=== PATIENT | female | born 1945 | race Caucasian/White ===

== ENCOUNTER → 2017-03-20 | Outpatient (CLI) | payer MEDICARE, OTHER ==
[~2017-03-20] MED LIST: AMLO5TAB PO; ASPIR-LOW81 MG PO; ASPIRIN 325MG325 MG PO; CARVEDILOL 1212.5 MG PO; CLOPIDOGREL75 M1 PO; DICLOFENAC SODI75 M2 PO; DICLOFENAC SODI75 M3 PO; GOOD NEIGHBOR P20 M1 PO; HYDROCHLOROTH12.5 M2 PO; KEFLEX 500MG.500 MG PO; LIPITOR20 MG PO; LOSARTAN POTAS100 MG PO; LOSARTAN POTASS1 TA1 PO; METHOCARBAMOL750 M1 PO; OCUVITE EYE +1 EACH PO; OMEPRAZOLE20 MG PO; PREDNISONE 20MG20 MG PO; ZANTAC 150150 MG PO
--- NOTE | 2017-03-25 11:19 | RADIOLOGY REPORT PS360 ---
DIG MAMM-SCREEN PAT W/CAD CAD Screening ORDERING PHYSICIAN : Tolu Banerjee MD PATIENT AGE: 71 years GENDER: Female COMPARISON: Previous mammograms: February 2015 and 2015 and 2013 INDICATION: Routine screening no hormones. No new complaints. Noncontributory family history TECHNIQUE: Standard CC and MLO images were obtained. R2 CAD reviewed. FINDINGS: Low-density breast bilaterally with no dominant mass or suspicious calcifications. There are fairly extensive vascular calcifications throughout both breast which likely correlate with underlying coronary artery disease or diabetes. No new findings of significant concern compared to previous studies IMPRESSION: Stable mammogram with no new areas of significant concern.. Lower density breast. Prominent vascular calcifications both breast incidentally noted BI-RADS CATEGORY: 1_Negative RECOMMENDED FOLLOWUP: 12M 12 MONTH FOLLOW-UP (A letter has been sent to the patient regarding results of the study.)
== END ==
LOC: RAD 08:30
DX: Z12.31 Encounter for screening mammogram for malignant neoplasm of breast (principal)
CPT/HCPCS: G0202

== ENCOUNTER → 2017-05-04 | Outpatient (CLI) | payer MEDICARE, OTHER ==
[2017-05-04 10:21] LABS: HEMOGLOBIN 10.9 g/dL (12.2-16.2); LYMPH # 2.6 K/mm3 (0.7-4.5); LYMPH % 40.9 % (10-50.0)
[2017-05-04 12:12] LABS: BUN 15 mg/dL (7-18)
[2017-05-04 12:13] LABS: GFR (ESTIMATED) 61 ML/MIN (59-)
== END ==
LOC: LAB 09:49
PROVIDERS: Nurse Practitioner Family
DX: E78.5 Hyperlipidemia, unspecified (principal); D64.9 Anemia, unspecified; I10 Essential (primary) hypertension

== ENCOUNTER → 2017-06-09 | Outpatient (CLI) | payer MEDICARE, OTHER ==
[2017-06-09 10:15] LABS: HEMOGLOBIN 11.3 g/dL (12.2-16.2); LYMPH # 2.2 K/mm3 (0.7-4.5); LYMPH % 35.1 % (10-50.0)
== END ==
LOC: LAB 09:52
PROVIDERS: Internal Medicine Adolescent Medicine
DX: D64.9 Anemia, unspecified (principal)